=== PATIENT | female | born 1985 | race Caucasian/White ===

== ENCOUNTER 2021-08-12 03:24 | Emergency (ER) | payer BC, SELFPAY ==
--- NOTE | ~2021-08-12 | XR_ITS ---
EXAMINATION: XR chest 2V DATE: 08/12/2021 04:19 INDICATION: Left chest pain. TECHNIQUE: Frontal and lateral views of the chest were obtained. COMPARISON: None. FINDINGS: Calcified right lung nodules and calcified right hilar lymph nodes are consistent with old granulomatous disease. No pleural effusion or pneumothorax. The heart size is normal. IMPRESSION: 1. No acute cardiopulmonary disease. Reviewed, dictated and finalized at location A.
--- NOTE | 2021-08-12 03:26 | ECG_ITS ---
Measurements Intervals [place] Rate: 69 P: 50 IN: 152 QRS: 46 QRSD: 84 T: 43 QT: 419 QTc: 450 Interpretive Statements BASELINE MOTION ARTIFACT NOTED SINUS RHYTHM MINOR ST SEGMENT ABNORMALITY NO PREVIOUS ECG AVAILABLE FOR COMPARISON Electronically Signed On 08-12-2021 11:12:39 CDT by Blake Heck M.D.
[2021-08-12 03:28] VITALS: BP 141/97; PULSE 59; RESP 18; TEMP 36.6; O2SAT 100
[2021-08-12 03:39] VITALS: O2SAT 100
[2021-08-12 03:40] LABS: Basophils Percent Auto 0.5 % (0.2-1.2); Eosinophils Absolute Auto 0.2 K/mm3 (0-0.3); Eosinophils Percent Auto 2.2 % (0-4.4); Hemoglobin 12.9 g/dL (12.0-15.0); Immature Granulocyte Absolute 0.02 K/mm3 (0.00-0.031); Immature Granulocyte Percent A 0.3 % (0-0.5); Lymphocytes Absolute Auto 4.34 K/mm3 (0.9-3.2); Lymphocytes Percent Auto 59.5 % (18.3-44.2); Mean Corpuscular HGB Conc 33.1 g/dl (32-36); Mean Corpuscular Volume 93.8 fl (80-100); Mean Platelet Volume 9.9 fl (7.4-10.4); Monocytes Absolute Auto 0.6 K/mm3 (0.1-0.6); Monocytes Percent Auto 8.4 % (2.6-8.5); Neutrophils Absolute Auto 2.1 K/mm3 (1.3-6.7); Neutrophils Percent Auto 29.1 % (45.5-73.1); Platelet Count Result 261 k/mm3 (150-375); Red Blood Count 4.16 M/mm3 (4.2-5.4); White Blood Count 7.3 K/mm3 (4.5-10.0)
--- NOTE | 2021-08-12 03:51 | ED.CHESTPAIN ---
HPI - Chest Pain General Chief Complaint: Chest Pain Stated Complaint: chest pain Time Seen by Provider: 08/12/21 03:25 Source: patient Mode of arrival: ambulatory Limitations: no limitations History of Present Illness HPI narrative: 35-year-old female presenting to the [facility] for evaluation of sharp left-sided chest pain that radiates to her back. Patient states over the course of the last month she has had cough and congestive symptoms. Patient did start taking Sudafed for the symptoms. Patient denies any shortness of breath but states that when she woke up this morning that she did have intermittent left-sided chest pain that feels sharp and is worsened with inspiration. Patient surgeries. Patient denies any history of PE or DVT. Patient has no personal cardiac history. Related Data Allergies Allergy/AdvReac Type Severity Reaction Status Date / Time cefaclor Allergy Unknown Nausea Verified 06/27/21 14:16 sulfamethizole Allergy Unknown Asthma Verified 06/27/21 14:16 Review of Systems Review of Systems: CONSTITUTIONAL: Denies fever, chills, or sweats. EYES: Denies visual changes, redness, or discharge. ENT: Denies rhinorrhea, congestion, sore throat, or otalgia. CARDIOVASCULAR: CP RESPIRATORY: sharp left sided chest pain with inspiration GASTROINTESTINAL: Denies abdominal pain, nausea, vomiting, or diarrhea. GENITOURINARY: Denies dysuria or hematuria. SKIN: Denies rash or itching. MUSCULOSKELETAL: Denies back pain, joint pain, or myalgia. NEUROLOGIC: Denies headache, numbness, or weakness. [facility] Family History Family History Mother Family history of hypercholesterolemia Hypertension Grandparent Family history of malignant neoplasm Other Asthma Family history of nephrotic syndrome Social History Social History Smoking status: Never smoker Alcohol intake: current Exam Narrative: APPEARANCE: Well appearing, no pain, no distress, well-nourished. HEAD: normocephalic, atraumatic. EYES: PERRLA/EOMI, conjunctivae clear. NOSE: Normal no drainage NECK: Supple. No adenopathy, no masses. RESPIRATORY: Airway patent, respirations nonlabored. Clear to auscultation bilaterally, no rales, rhonchi, wheezing. CARDIOVASCULAR: Reproducible left-sided chest wall pain ABDOMINAL: Soft, nontender, nondistended, normal bowel sounds MUSCULOSKELETAL: Moves all extremities. Strength/ROM intact, No edema, No calf tenderness. NEURO: Alert. Cranial nerves II through XII intact. Good gait. Good coordination SKIN: Warm, dry. Normal Color Course Course Emergency Course: Chest x-ray showed no acute cardiopulmonary abnormality. D-dimer was negative. Patient does have a urinary tract infection and is being treated with antibiotics. Patient was updated on the results of the work-up and treatment plan. All questions and concerns were addressed. Vital Signs Vital signs: Vital Signs Temperature 97.9 F 08/12/21 03:28 Pulse Rate 59 L 08/12/21 03:28 Respiratory Rate 18 08/12/21 03:28 Blood Pressure 141/97 H 08/12/21 03:28 Pulse Oximetry 100 08/12/21 03:28 Temperature 97.9 F 08/12/21 03:28 Pulse Rate 57 L 08/12/21 04:48 Respiratory Rate 20 08/12/21 04:48 Blood Pressure 108/69 08/12/21 04:48 Pulse Oximetry 99 08/12/21 04:48 MDM - Chest Pain Differential Diagnosis Differential diagnosis: Likely atypical chest pain and chest pain Lab Data Attestation: I reviewed the patient's lab results. Result diagrams: 08/12/21 03:32 08/12/21 03:32 Labs: Lab Results 08/12/21 08/12/21 08/12/21 Range/Units 03:32 03:32 03:32 WBC 7.3 (4.5-10.0) K/mm3 RBC 4.16 L (4.2-5.4) M/mm3 Hgb 12.9 (12.0-15.0) g/dL Hct 39.0 (37.0-47.0) % MCV 93.8 (80-100) fl MCH 31.0 (26-34) pg MCHC 33.1 (32-36) g/dl RDW 12.0 (11.5-14.5) % Plt Count
[2021-08-12 03:53] LABS: Alanine Aminotransferase 22 U/L (4-35); Albumin Level 4.6 g/dL (3.5-5.1); Alkaline Phosphatase 57 U/L (38-126); Anion Gap 7 mmol/L (8-16); Aspartate Amino Transferase 37 U/L (14-36); Bilirubin,Total 0.8 mg/dL (0.2-1.3); Blood Urea Nitrogen 22 mg/dL (7-17); Calcium 8.5 mg/dL (8.4-10.2); Carbon Dioxide 27 mmol/L (22-30); Chloride 103 mmol/L (98-107); Estimated CRCL calculation 68 ml/min; Estimated Glomerular Filt Rate > 60; Glucose 101 mg/dL (65-110); Potassium 3.5 mmol/L (3.4-5.0); Sodium 137 mmol/L (137-145)
[2021-08-12 04:03] LABS: D Dimer < 0.22 ug/mL (<0.48)
[2021-08-12 04:07] LABS: Troponin I < 0.012 ng/mL (0.000-0.034)
[2021-08-12 04:13] LABS: Add Urine Microscopic? YES; Appearance Urine Cloudy (Clear); Bacteria Urine 2+ /hpf; Bilirubin Urine Negative (Negative); Blood Urine 1+ (Negative); Color Urine Yellow (Yellow); Glucose Urine UA Negative (Negative); Ketones Urine Trace mg/dL (Negative); Leukocyte Esterase Ur 3+ LEU/UL (Negative); Mucus Urine Rare /lpf; Nitrate Urine Negative (Negative); Protein Urine 1+ mg/dL (Negative); Specific Grav Ur 1.023 (1.001-1.035); Squamous Epithelial Cell Urine Many /hpf (Few); Urobilinogen Urine Negative mg/dL (<2.0); WBC Urine >75 /hpf
[2021-08-12 04:48] VITALS: BP 108/69; PULSE 57; RESP 20; O2SAT 99
[2021-08-12] MEDS: KETOROLAC 15 MG/ML VIAL (*BKC) IV PUSH (04:57)
[2021-08-12] MEDS: CEPHALEXIN 250 MG CAPSULE PO (04:57)
== END 2021-08-12 05:05 | disposition home or self-care (01) ==
PROVIDERS: Emergency Provider Emergency Medicine; PCP Family Medicine
DX: R07.9 Chest pain, unspecified (principal); N30.01 Acute cystitis with hematuria
CPT/HCPCS: 36415; 71046; 80053; 81001; 81025; 84484; 85025; 85380; 87086; 87088; 93005; 96374; 99284; A9270; J1885

== ENCOUNTER 2022-11-07 16:43 | Emergency (ER) | payer BC, SELFPAY ==
--- NOTE | ~2022-11-07 | XR_ITS ---
Right Shoulder Technique: AP and scapular Y views were obtained. Clinical History: Pain, dislocation Findings: No fracture or dislocation is seen. Osseous alignment is anatomic. The glenohumeral and acr omioclavicular joint spaces are preserved. Soft tissues are unremarkable. Calcified right pulmonary g ranuloma noted. Impression: Unremarkable right shoulder radiographs. Reviewed, dictated and finalized at location . Impression: Unremarkable right shoulder radiographs.
[2022-11-07 16:48] VITALS: BP 123/63; PULSE 60; RESP 16; TEMP 36.8; O2SAT 100
--- NOTE | 2022-11-07 17:39 | ED.UPPEXIN ---
HPI - Extremity Injury (Upper) General Chief Complaint: Extremity Injury, Upper Stated Complaint: R shoulder dislocation Time Seen by Provider: 11/07/22 16:54 History of Present Illness HPI narrative: Patient is a 37-year-old female who presents ER with right shoulder dislocation. She was diving into a [place]aley pad on her limon when her right shoulder dislocated. She is able to relocate it on her own. She then immediately suffered recurrent dislocation of the same shoulder. Her was then able to help her reduce it. She has had dislocation of her left shoulder in the past. 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 No numbness or tingling to the extremities at this time. She no longer has pain in her shoulder. She had no head injury. Related Data Home Medications Medication Instructions Recorded Confirmed bupropion HCl 150 mg 24 hr tablet, 150 mg PO DAILY 04/05/22 06/21/22 extended release Allergies Allergy/AdvReac Type Severity Reaction Status Date / Time cefaclor Allergy Unknown Nausea Verified 06/21/22 13:58 sulfamethizole Allergy Unknown Asthma Verified 06/21/22 13:58 miconazole [From Monistat 7] AdvReac Severe severe Verified 06/21/22 13:58 chemical dermatitis Penicillins AdvReac Mild Itching Verified 06/21/22 13:58 Review of Systems Constitutional: Constitutional: Denies chills and Denies fever(s) Musculoskeletal: Musculoskeletal: Reports arthralgias, Denies joint swelling and Denies muscle cramps Neurologic: Denies syncope, Denies headache(s), Denies focal weakness and Denies numbness PMFSH Past Medical History Medical History (Updated 11/07/22 @ 17:52 by Chidi Claros MD) History of dislocation of shoulder Mild intermittent asthma, uncomplicated Surgical History Surgical History (Updated 11/07/22 @ 17:52 by Chidi Claros MD) No pertinent past surgical history Family History Family History Mother Family history of hypercholesterolemia Hypertension Grandparent Family history of malignant neoplasm Other Asthma Family history of nephrotic syndrome Social History Social History (Updated 04/05/22 @ 11:04 by Rosemary Mccloud MA) Smoking status: Never smoker Alcohol intake: current Substance use type: does not use Lack of Transportation: No Lack of Food: Never True Current Housing: I Have Housing Concerned About Future Housing: No Difficulty Paying Gas/Electric Bills: No Difficulty Paying for Meds: No Currently Unemployed: No Education: Bachelor's Degree Difficulty w/ Childcare or Family Care: No Living arrangements: with family Exam Narrative: GENERAL: Well-appearing, well-nourished, and in no acute distress. HEAD: Normocephalic, atraumatic. ENT: Mucous membranes moist. HEART: Regular rate and rhythm. Normal peripheral pulses. EXTREMITIES: No tenderness right shoulder over the clavicle/AC process/anterior joint line. No dislocation. Normal flexion extension of the right wrist with sensation intact. Patient able to externally rotate right shoulder. SKIN: Warm, dry, no rash. NEURO: Alert and oriented x3. PSYCH: Normal mood and affect. Course Course Emergency Course: Patient resting comfortably. Switch from a sling to a shoulder immobilizer. We will give Ortho follow-up. Patient may require PT to strengthen her shoulder joint. Vital Signs Vital signs: Vital Signs Temperature 98.3 F 11/07/22 16:48 Pulse Rate 60 11/07/22 16:48 Respiratory Rate 16 11/07/22 16:48 Blood Pressure 123/63 11/07/22 16:48 Pulse Oximetry 100 11/07/22 16:48 Oxygen Delivery Room Air 11/07/22 16:48 Temperature 98.3 F 11/07/22 16:48 Pulse Rate 60 11/07/22 16:48 Respiratory Rate 16 11/07/22 16:48 Blood Pressure 123/63 11/07/22 16:48 Pulse Oximetry 100 11/07/22 16:48 Ox
[2022-11-07 17:58] VITALS: BP 118/68; PULSE 62; RESP 16; TEMP 36.1; O2SAT 98
== END 2022-11-07 17:59 | disposition home or self-care (01) ==
PROVIDERS: Emergency Provider Emergency Medicine; PCP Family Medicine
DX: S43.004A Unspecified dislocation of right shoulder joint, initial encounter (principal); J45.20 Mild intermittent asthma, uncomplicated; X50.9XXA Other and unspecified overexertion or strenuous movements or postures, initial encounter
CPT/HCPCS: 73030; 99283; A4565